=== PATIENT | male | born 1995 | race Hispanic/Latino ===

== ENCOUNTER 2019-03-01 19:20 | Emergency (ER) | payer SELFPAY ==
[2019-03-01 19:52] VITALS: BP 119/74
--- NOTE | 2019-03-01 19:53 | Event Note ---
ED Screening Note Date of service: 03/01/19 Time: 19:50 ED Screening Note: This is a 23 y.o. M. that presents to the ER with chest pain that is non- radiating. Denies cough, fever, and congestion. Current smoker This initial assessment/diagnostic orders/clinical plan/treatment(s) is/are subject to change based on patients health status, clinical progression and re- assessment by fellow clinical providers in the ED. Further treatment and workup at subsequent clinical providers discretion. Patient/guardian urged not to elope from the ED as their condition may be serious if not clinically assessed and managed. Initial orders include: EKG and CXR
--- NOTE | 2019-03-01 20:45 | XRay Report ---
CHEST 1 VIEW 03/01/2019 8:22 PM INDICATION / CLINICAL INFORMATION: Chest Pain. COMPARISON: None available. FINDINGS: SUPPORT DEVICES: None. HEART / MEDIASTINUM: No significant abnormality. LUNGS / PLEURA: No significant pulmonary or pleural abnormality. No pneumothorax. ADDITIONAL FINDINGS: No significant additional findings. IMPRESSION: 1. No acute findings. Signer Name: Gopi Morgan MD Signed: 03/01/2019 8:41 PM Workstation Name: [id number]
[2019-03-01] MEDS ORDERED: IBUPROFEN PO ONE (23:00)
[2019-03-01] MEDS ORDERED: ALUM-MAG HYDROX-SIMETH 200-200-20MG/5ML PO ONE (23:00)
[2019-03-01] MEDS ORDERED: LIDOCAINE VISCOUS 2% PO ONE (23:00)
--- NOTE | 2019-03-01 23:54 | Emergency Department Report ---
ED General Adult HPI - General Chief complaint: Chest Pain Stated complaint: SHARP PAIN CHEST Time Seen by Provider: 03/01/19 19:50 Source: patient Mode of arrival: Ambulatory Limitations: No Limitations - History of Present Illness Initial comments: Pt is a 23 y/o aam who presents for epigastric pain and burning x 1 week symptoms are exacerbated by eating and position pt states carl satiety , belching, fullness, pt denies fever or chills no sob no vomiting no diarrhea no constipation. this is a recurring problem especially with spicy foods, pt states occasional smoker , occasional etoh Onset/Timin -: week(s) Location: chest (epigastric ) Radiation: abdomen Severity scale (0 -10): 5 Quality: burning, other (pressure ) Consistency: constant Improves with: rest Worsens with: eating, movement, other (position) Associated Symptoms: chest pain (epigastric ) Treatments Prior to Arrival: none - Related Data Previous Rx's Medication Instructions Recorded Last Taken Type Ibuprofen [Motrin 800 MG tab] 800 mg PO Q8HR PRN #30 tablet 03/02/19 Unknown Rx Omeprazole 20 mg PO DAILY #30 tablet. 03/02/19 Unknown Rx Sucralfate [Carafate] 1 gm PO ACHS 7 Days #28 tablet 03/02/19 Unknown Rx Allergies Allergy/AdvReac Type Severity Reaction Status Date / Time Penicillins Allergy Hives Verified 03/01/19 19:24 ED Review of Systems ROS: Stated complaint: SHARP PAIN CHEST Other details as noted in HPI Constitutional: denies: chills, fever, malaise Eyes: denies: eye pain, eye discharge, vision change ENT: throat pain (burning ). denies: ear pain, hearing loss, epistaxis, congestion Respiratory: denies: cough, shortness of breath, wheezing Cardiovascular: chest pain (epigastric ). denies: palpitations Endocrine: no symptoms reported Gastrointestinal: abdominal pain (epigastric tenderness ), nausea. denies: vomiting, diarrhea, constipation, melena, hematochezia Genitourinary: denies: urgency, dysuria, frequency, discharge Musculoskeletal: denies: back pain, joint swelling, arthralgia Skin: denies: rash, lesions Neurological: denies: headache, weakness, paresthesias, vertigo Psychiatric: anxiety. denies: depression Hematological/Lymphatic: denies: easy bleeding, easy bruising ED Past Medical Hx - Past Medical History Previous Medical History?: Yes Hx Asthma: Yes - Surgical History Past Surgical History?: Yes Additional Surgical History: left leg surgery, back surgery - Social History Smoking Status: Current Every Day Smoker - Medications Home Medications: Home Medications Medication Instructions Recorded Confirmed Last Taken Type Ibuprofen [Motrin 800 MG tab] 800 mg PO Q8HR PRN #30 tablet 03/02/19 Unknown Rx Omeprazole 20 mg PO DAILY #30 tablet. 03/02/19 Unknown Rx Sucralfate [Carafate] 1 gm PO ACHS 7 Days #28 tablet 03/02/19 Unknown Rx ED Physical Exam - General Limitations: No Limitations General appearance: alert, in no apparent distress - Head Head exam: Present: atraumatic, normocephalic - Eye Eye exam: Present: normal appearance, PERRL, EOMI Pupils: Present: normal accommodation - ENT ENT exam: Present: normal orophraynx, mucous membranes moist, TM's normal bilaterally, normal external ear exam - Neck Neck exam: Present: normal inspection, full ROM. Absent: tenderness, meningismus, lymphadenopathy, thyromegaly - Respiratory Respiratory exam: Present: normal lung sounds bilaterally, chest wall tenderness (epigasrict tenderness to deep palpation). Absent: respiratory distress, wheezes, stridor - Cardiovascular Cardiovascular Exam: Present: regular rate, normal rhythm, normal heart sounds. Absent: systolic murmur, diastolic murmur, rubs, gallop - GI/Abdominal GI/Abdominal exam: Present: soft, tenderness (epigastric ), normal bowel sounds. Absent: distended, guarding, rebound, rigid, bruit, hernia - Expanded GI/Abdominal Exam Expanded GI/Abdominal exam: Absent: psoas sign, obturator sign, heel tap sign, Pizarro's sign, Rovsing's sign, tenderness at Mcburney's Point, ascites - Rectal Rectal exam: Present: deferred - Extremities Exam Extremities exam: Present: normal inspection, normal capillary refill - Back Exam Back exam: Present: normal inspection. Absent: full ROM, tenderness, CVA tenderness (R), CVA tenderness (L), muscle spasm, paraspinal tenderness, rash noted - Neurological Exam Neurological exam: Present: alert, oriented X3, CN II-XII intact, normal gait, reflexes normal - Psychiatric Psychiatric exam: Present: normal affect, normal mood - Skin Skin exam: Present: warm, dry, intact, normal color. Absent: rash ED Course Vital Signs 03/01/19 19:50 Temperature 98.2 F Pulse Rate 70 Respiratory 18 Rate Blood Pressure 119/74 O2 Sat by Pulse 97 Oximetry ED Medical Decision Making - EKG Data EKG shows normal: sinus rhythm, axis, intervals, QRS complexes, ST-T waves Rate: normal - EKG Data When compared to previous EKG there are: other (no previous ekg on record ) Interpretation: normal EKG (EKG interp by ED attending, NSR No ST Eelevated [place] ) - Radiology Data Radiology results: report reviewed, image reviewed Ordering Physician: YULY ELISE Date of Service: 03/01/19 Procedure(s): XR chest 1V ap Accession Number(s): [id number] cc: YULY ELISE Fluoro Time In Minutes: CHEST 1 VIEW 03/01/2019 8:22 PM INDICATION / CLINICAL INFORMATION: Chest Pain. COMPARISON: None available. FINDINGS: SUPPORT DEVICES: None. HEART / MEDIASTINUM: No significant abnormality. LUNGS / PLEURA: No significant pulmonary or pleural abnormality. No pneumothorax. ADDITIONAL FINDINGS: No significant additional findings. IMPRESSION: 1. No acute findings. Signer Name: Gopi Morgan MD Signed: 03/01/2019 8:41 PM Workstation Name: [id number] Transcribed By: SONAL Dictated By: Gopi Morgan MD Electronically Authenticated By: Gopi Morgan MD Signed Date/Time: 03/01/192040 DD/ 40 TD/TT: - Medical Decision Making cxr : normal no opacities no infiltrates, EKG: NSR no ST Elevated [place], abd pain improve with GI cocktail , pt denies n/v is tolerated po intake without symptsoms at this time. plan: carafate, omeprozole follow up with pcp in 2-3 days pt verbalized agreement and understanding of discharge plan. Critical care attestation.: If time is entered above; I have spent that time in minutes in the direct care of this critically ill patient, excluding procedure time. ED Disposition Clinical Impression: Epigastric pain GERD (gastroesophageal reflux disease) Qualifiers: Esophagitis presence: without esophagitis Qualified Code(s): K21.9 - Gastro- esophageal reflux disease without esophagitis Disposition: - TO HOME OR SELFCARE Is pt being admited?: No Does the pt Need Aspirin: No Condition: Stable Instructions: Gastroesophageal Reflux in Children (ED), Diet for Ulcers and Gastritis (ED) Prescriptions: Sucralfate [Carafate] 1 gm PO ACHS 7 Days #28 tablet Ibuprofen [Motrin 800 MG tab] 800 mg PO Q8HR PRN #30 tablet PRN Reason: pain Omeprazole 20 mg PO DAILY #30 tablet. Referrals: [facility] [Outside] - 3-5 Days Forms: Work/School Release Form(ED) Time of Disposition: 00:03
== END 2019-03-02 00:16 | disposition home or self-care (01) ==
LOC: ED 19:20
DX: K21.9 Gastro-esophageal reflux disease without esophagitis (principal); J45.909 Unspecified asthma, uncomplicated; F17.200 Nicotine dependence, unspecified, uncomplicated; Z88.0 Allergy status to penicillin
CPT/HCPCS: 71045; 93005; 93010